=== PATIENT | female | born 1975 | race Caucasian/White ===

== ENCOUNTER 2021-07-16 09:03 | Emergency (ER) | payer OTHER, SELFPAY ==
[2021-07-16] MEDS ORDERED: Ketorolac Tromethamine 30 MG/ML VIAL ONE (09:42)
[2021-07-16 10:01] LABS: #Basophils 0.1 thou/uL (0.0-0.2); #Eosinphils 0.1 thou/uL (0.0-0.7); #Lymphocytes 2.3 thou/uL (1.20-3.40); #Monocytes 0.5 thou/uL (0.11-0.59); #Neutrophils 3.3 thou/uL (1.40-6.50); %Basophils 1.2 % (0.0-1.0); %Eosinophils 2.2 % (0.0-10.0); %Monocytes 7.6 % (0.0-10.0); %Neutrophils 51.9 % (42.0-75.0); Hemoglobin 14.2 g/dL (12.0-16.0); Mean Corpuscular HGB CONC 35.3 g/dL (32.0-36.0); Mean Corpuscular Hemoglobin 34.9 pg (27.0-31.0); Mean Corpuscular Volume 98.9 fL (78.0-98.0); Mean Platelet Volume 9.6 fL (7.4-10.4); Platelet Count 180 thou/uL (130-400); RBC Distribution Width 10.9 % (11.5-14.5); Red Blood Cell (RBC) Count 4.07 mill/uL (4.20-5.40); White Blood Cell (WBC) Count 6.3 thou/uL (4.8-10.8)
[2021-07-16 10:18] LABS: ALT (SGPT) 17 U/L (8-55); AST (SGOT) 15 U/L (5-34); Albumin 4.2 g/dL (3.5-5.0); Alkaline Phosphatase 47 U/L (40-110); Anion Gap 14 mmol/L (10-20); BUN (Urea Nitrogen) 16 mg/dL (7.0-18.7); Bilirubin, Total 0.3 mg/dL (0.2-1.2); CK (CPK) 51 U/L (29-168); Calc. Creatinine Clearance 0 mL/min (70-130); Calcium 9.1 mg/dL (7.8-10.44); Carbon Dioxide 20 mmol/L (22-29); Chloride 107 mmol/L (98-107); Globulin 2.8 g/dL (2.4-3.5); Glucose 99 mg/dL (70-105); Lipase 13 U/L (8-78); Potassium 3.8 mmol/L (3.5-5.1); Sodium 137 mmol/L (136-145)
== END 2021-07-16 10:57 | disposition home or self-care (01) ==
LOC: ERS 09:03
DX: M54.6 Pain in thoracic spine (principal); F17.210 Nicotine dependence, cigarettes, uncomplicated; F17.290 Nicotine dependence, other tobacco product, uncomplicated
CPT/HCPCS: 71045; 80053; 82550; 83690; 83880; 84484; 85025; 85379; 93005; 96374; J1885

== ENCOUNTER 2024-02-05 13:57 | Outpatient (CLI) | payer OTHER | END 2024-02-05 13:58 | disposition home or self-care (01) | LOC: CT 13:57 | PROVIDERS: ATTEND Physician Assistant | DX: S09.90XA Unspecified injury of head, initial encounter (principal); H53.143 Visual discomfort, bilateral; H53.9 Unspecified visual disturbance; R41.3 Other amnesia; R42 Dizziness and giddiness; H74.92 Unspecified disorder of left middle ear and mastoid | CPT/HCPCS: 70450 ==